=== PATIENT | female | born 1965 | race Caucasian/White ===

== ENCOUNTER 2018-05-12 20:53 | Emergency (ER) | payer OTHER ==
[~2018-05-12] VITALS: Ht 172.7 cm; Wt 59.9 kg
[2018-05-12 21:00] VITALS: BP 124/76
== END 2018-05-12 21:43 | disposition home or self-care (01) ==
LOC: ER 20:53
DX: S05.12XA Contusion of eyeball and orbital tissues, left eye, initial encounter (principal); Z88.0 Allergy status to penicillin; Z88.2 Allergy status to sulfonamides; W20.8XXA Other cause of strike by thrown, projected or falling object, initial encounter; Y92.007 Garden or yard of unspecified non-institutional (private) residence as the place of occurrence of the external cause; Y99.0 Civilian activity done for income or pay; Y99.8 Other external cause status